=== PATIENT | male | born 2000 | race Caucasian/White ===

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

== ENCOUNTER 2023-05-17 20:46 | Emergency (ER) | payer OTHER, SELFPAY ==
[2023-05-17 20:47] VITALS: BP 155/93; PULSE 112; RESP 16; TEMP 36.1; O2SAT 99; BMI 31.2
--- NOTE | 2023-05-17 20:49 | EKG12_ITS ---
Test Reason : CP/PALPITATIONS Blood Pressure : / mmHG Vent. Rate : 098 BPM Atrial Rate : 098 BPM P-R Int : 172 ms QRS Dur : 080 ms QT Int : 334 ms P-R-T Axes : 034 039 005 degrees QTc Int : 426 ms Normal sinus rhythm Normal ECG Confirmed by Jay Hampton ([id number]), market editor MARTIN JEFFREY ([id number]) on 05/18/2023 10:05:50 AM Referred By: CORNELIUS Confirmed By:Jay Hampton
--- NOTE | 2023-05-17 21:10 | RAD_ITS ---
INDICATION: chest pain EXAMINATION/TECHNIQUE: X-RAY - XR Chest 1 View COMPARISON: None. FINDINGS: LINES/DEVICES: None. LUNGS: No consolidation, edema or effusion. No pneumothorax. MEDIASTINUM AND CARDIOVASCULAR STRUCTURES: Cardiac silhouette not enlarged. Central airways and mediastinal contour are unremarkable. BONES AND SOFT TISSUES: Unremarkable. RAD/Chest 1 View (Portable) IMPRESSION: No radiographic evidence of acute cardiopulmonary disease. Electronically Signed: Gurwinder Henao MD at 21:52 EDT ,
--- NOTE | 2023-05-17 22:29 | EX.ED.DYSGE1 ---
HPI History of Present Illness Chief Complaint: Chest Other Informant: patient Narrative Narrative: Patient states last night around 24 hours or so ago, he drank a preworkout before going to the gym with his friend, however he drank his friends drink on accident thinking it was his. His friend had some type of prescription steroid or something like that added to the preworkout which also has a larger amount of caffeine than this patient is used to, he estimates around 600 mg of caffeine in addition to other supplements such as amino acids, etc. He states he went to his workout and was fine but toward the end of it he started feeling tired and then ever since then or little after he has been feeling shaky, having intermittent palpitations, and tightness in the chest intermittently. No syncope or near syncope. He takes Adderall. He is concerned because his symptoms have persisted although they are not as severe as they were earlier in the day. He does not use any illicit drugs and does not suspect that there were any in this drink. [facility] Medical History Anxiety and depression Contact with and (suspected) exposure to other viral communicable diseases Home Medications meclizine 50 mg tablet (Antivert) 50 mg PO BID PRN dizziness #10 tabs 11/13/21 [Rx Last Taken Unknown] dextroamphetamine-amphetamine 5 mg tablet (Adderall) 5 mg PO DAILY 12/04/21 [History Last Taken Unknown] prednisone 20 mg tablet 20 mg PO BID #10 tabs 12/04/21 [Rx Last Taken Unknown] Allergy/AdvReac Type Severity Reaction Status Date / Time No Known Allergies Allergy Verified 05/17/23 20:47 Social History Smoking Status: Current every day smoker tobacco type: e-cigarettes ROS ROS ED Constitutional Constitutional ED: Reports other Details: Shaky ; Denies chills or fever(s) Eyes Eyes: Denies change in vision or diplopia ENT ENT ED: Denies rhinorrhea or sore throat Cardiovascular Cardiovascular: Reports chest pain and palpitations Respiratory/Chest Respiratory/Chest: Denies cough or dyspnea Gastrointestinal Gastrointestinal: Denies abdominal pain, diarrhea, nausea or vomiting Genitourinary Genitourinary ED: Denies dysuria or hematuria Musculoskeletal Musculoskeletal: Denies back pain or neck pain Integumentary Denies abscess or rash Neurologic Neurologic: Denies headache(s), paresthesias or weakness Psychiatric Psychiatric: Reports anxiety; Denies suicidal thoughts EXAM Physical Exam Const Vital Signs: 05/17/23 20:47 05/17/23 22:58 05/17/23 23:15 Temperature 96.9 F L Temperature Source Temporal Pulse Rate 112 H 82 Respiratory Rate 16 18 Blood Pressure 155/93 H 139/78 H Blood Pressure Mean 113 98 Pulse Ox 99 Oxygen Delivery Method Room Air Positive well nourished and well developed Constitutional Narrative: Well-appearing, no tachycardia at the time of exam General Appearance ED: well developed and NAD HEENT Reports moist mucous membranes normocephalic and atraumatic Eyes PERRL and EOMs intact bilaterally Eyes Narrative: 3 mm and responsive Neck full ROM and supple Resp normal respiratory effort and clear to auscultation bilaterally Cardio regular rate, regular rhythm and no murmurs GI non-tender and non-distended Auscultation: normoactive bowel sounds Palpation: soft Back/Spine no CVA tenderness General Back: other FROM Extremity normal to inspection General Extremety ED: Negative for edema, pulses abnormal or tenderness General Extremity: Negative for edema or pulses abnormal Neuro oriented x3, CN's II-XII intact bilaterally and no sensory deficits noted Sensorium / Orientation: awake and alert Motor Exam: strength 5/5 throughout Skin no rashes or lesions noted and no wounds MDM MDM MDM Narrative Medical decision making narrative: EKG, labs, two-view chest x-ray my interpretation normal, all unremarkable. Patient is doing well his rhythm is normal he had no dysrhythmias here and he is not tachycardic anymore. My suspicion is that this was all caffeine mixed with Adderall-related. There is no toxidrome right now. This includes anticholinergic. He states he was feeling a little confused earlier but he is not grossly confused, I think he just meant he was feeling a little disoriented. He does not have an anion gap metabolic acidosis and his vital signs are now normal, as he was a little hypertensive and tachycardic when he arrived. Stable for discharge home, I recommend avoiding any caffeine or other substances including preworkout supplementation until symptoms are completely resolved for at least 24 hours. I do think it is okay for him to continue taking his Adderall. He is comfortable with that plan. Lab Data Attestation: I reviewed the patient's lab results. Labs: Laboratory Results - last 24 hr 05/17/23 22:53 WBC 6.7 RBC 4.88 Hgb 14.2 Hct 40.1 MCV 82.2 MCH 29.1 MCHC 35.4 RDW Std Deviation 37.3 RDW Coeff of [place]ung 12.6 Plt Count 170 MPV 9.1 Immature Gran % (Auto) 0.500 Neut % (Auto) 58.2 Lymph % (Auto) 30.1 [place] % (Auto) 8.9 Eos % (Auto) 1.8 Baso % (Auto) 0.5 Absolute Neuts (auto) 3.9 Absolute Lymphs (auto) 2.00 Nucleated RBC % 0 Sodium 142 Potassium 3.5 Chloride 111 H Carbon Dioxide 24.0 Anion Gap 7 BUN 18 Creatinine 0.91 Estim Creat Clear Calc 165.10 Est GFR (MDRD) Af Amer 136 Est GFR (MDRD) Non-Af 112 BUN/Creatinine Ratio 19.9 Glucose 115 H Calcium 8.7 Troponin I High Sens 6 Radiography Diagnostic Testing: Clinical Impression(s) from Imaging Studies Chest X-Ray 05/17/23 21:10 IMPRESSION: No radiographic evidence of acute cardiopulmonary disease. Electronically Signed: Gurwinder Henao MD at 21:52 EDT Reading Location ID and State: [address] [place] [address] Tel , Service support , Rhythm Strip Rhythm Strip: Sinus Rhythm Rate: 98 Ectopy: None EKG Initial EKG: Attestation: I personally reviewed and interpreted this EKG as follows: Interpretation: Sinus Rhythm and No Acute Injury Pattern Comments: nml EKG Discharge Plan Triage Chief Complaint: Chest Other ED Provider: Riley Morris Dx/Rx/DC Orders Clinical Impression: Caffeine toxicity Instructions: ED Accidental Ingestion ... Prescriptions: No Action dextroamphetamine-amphetamine [Adderall] 5 mg tablet 5 mg PO DAILY prednisone 20 mg tablet 20 mg PO BID Qty: 10 0RF Antivert 50 mg tablet 50 mg PO BID PRN (Reason: dizziness) Qty: 10 0RF Primary Care Provider: EMILY KLINE Referrals: Rojelio Lang MD [Non-Staff] - As Needed Activity Restrictions/Additional Instructions: Avoid caffeine and other supplements until your symptoms have been resolved for at least 24 hours. You may continue taking your Adderall. Disposition Disposition: Home, Self Care
[2023-05-17 23:03] LABS: Absolute Neutrophil Count 3.9 X10^3/uL (2.0-7.7); Basophil# 0.03 X10^3/uL; Basophil% 0.5 % (0-1); Eosinophil# 0.12 X10^3/uL; Eosinophils% 1.8 % (0-5); Hematocrit 40.1 % (40-54); Hemoglobin 14.2 g/dL (13.0-16.5); Lymphocyte % 30.1 % (19-41); Mean Corp Hgb Conc 35.4 g/dL (32-36); Mean Corpuscular Hgb 29.1 pg (27.0-32.0); Mean Corpuscular Volume 82.2 fL (80-94); Mean Platelet Vol. 9.1 fl (6.2-12.0); Monocyte# 0.59 X10^3/uL; Monocyte% 8.9 % (0-10); NRBC Flagged by Analyzer 0 % (0-5); Neutrophil # 3.88 X10^3/uL (2.7-7.7); Neutrophil % 58.2 % (47-70); Platelet Count 170 K/mm3 (150-450); RBC Distribution Width CV 12.6 % (11.6-14.6); RBC Distribution Width SD 37.3 fl (35.1-43.9); Red Blood Count 4.88 M/mm3 (4.6-6.2); White Blood Count 6.7 K/mm3 (4.4-11.0)
[2023-05-17 23:15] VITALS: BP 139/78; PULSE 82; RESP 18
[2023-05-17 23:21] LABS: Anion Gap 7 (5-15); BUN 18 mg/dL (7-18); BUN/Creat Ratio 19.9 RATIO (10-20); Calcium,Total 8.7 mg/dL (8.5-10.1); Chloride 111 mmol/L (98-107); Creatinine, Serum 0.91 mg/dL (0.70-1.30); EST Glomerular Filtration Rate 112 mL/min (>60); Est Glom Filt Rate - Afr Amer 136 mL/min (>60); Glucose 115 mg/dL (74-106); Potassium 3.5 mmol/L (3.5-5.1); Sodium Level 142 mmol/L (136-145); Troponin-I HS (w/2H Reflex) 6 pg/mL (3.0-78.0)
[2023-05-17 23:46] VITALS: BP 120/89; PULSE 72; RESP 20; TEMP 36.1; O2SAT 99
[2023-05-18 00:59] LABS: Reflex Troponin-HS? (from REC) Y
== END 2023-05-17 23:50 | disposition home or self-care (01) ==
PROVIDERS: Emergency Provider Emergency Medicine; Visit Provider Emergency Medicine
DX: R00.2 Palpitations (principal); F17.290 Nicotine dependence, other tobacco product, uncomplicated; F41.9 Anxiety disorder, unspecified; R07.89 Other chest pain; T43.615A Adverse effect of caffeine, initial encounter
CPT/HCPCS: 71045; 80048; 84484; 85025; 93005; 99283

== ENCOUNTER 2023-10-30 21:34 | Emergency (ER) | payer OTHER, SELFPAY ==
[2023-10-30 21:35] VITALS: BP 141/79; PULSE 97; RESP 18; TEMP 36.2; O2SAT 100
[2023-10-30 22:39] LABS: Absolute Lymphocyte Count 2.56 X10^3/uL (0.83-4.51); Absolute Neutrophil Count 3.8 X10^3/uL (2.0-7.7); Basophil# 0.03 X10^3/uL; Basophil% 0.4 % (0-1); Eosinophils% 1.4 % (0-5); Hematocrit 42.3 % (40-54); Hemoglobin 15.1 g/dL (13.0-16.5); Lymphocyte # 2.56 X10^3/ul (0.83-4.51); Lymphocyte % 35.6 % (19-41); Mean Corp Hgb Conc 35.7 g/dL (32-36); Mean Corpuscular Hgb 29.3 pg (27.0-32.0); Mean Corpuscular Volume 82.1 fL (80-94); Mean Platelet Vol. 9.1 fl (6.2-12.0); Monocyte# 0.71 X10^3/uL; Monocyte% 9.9 % (0-10); NRBC Flagged by Analyzer 0 % (0-5); Neutrophil # 3.76 X10^3/uL (2.7-7.7); Neutrophil % 52.3 % (47-70); Platelet Count 195 K/mm3 (150-450); RBC Distribution Width CV 12.2 % (11.6-14.6); RBC Distribution Width SD 35.9 fl (35.1-43.9); Red Blood Count 5.15 M/mm3 (4.6-6.2); White Blood Count 7.2 K/mm3 (4.4-11.0)
[2023-10-30] MEDS: Dicyclomine 20 MG/2 ML Vial IM (22:39)
[2023-10-30] MEDS: 0.9% Normal Saline (1000mL) 1,000 ML 999 ML IV (22:39)
--- NOTE | 2023-10-30 22:40 | RAD_ITS ---
EXAM: XR ABDOMEN, 2 VIEWS AND XR CHEST, 1 VIEW CLINICAL INDICATION: abd pain TECHNIQUE: Frontal view of the chest, frontal view of the abdomen/pelvis and upright or decubitus view of the abdomen. COMPARISON: No relevant prior studies available. FINDINGS: CHEST: LUNGS AND PLEURAL SPACES: Unremarkable. No consolidation or edema. No pneumothorax. No effusion. HEART: Unremarkable. Cardiac silhouette not enlarged. MEDIASTINUM: Central airways and mediastinal contour are unremarkable. ABDOMEN: INTRAPERITONEAL SPACE: No free air. GASTROINTESTINAL TRACT: Unremarkable. Non-obstructive. No bowel or stomach distention. ORGANS: Unremarkable as visualized. No organomegaly. No abnormal calcifications. TUBES, LINES AND DEVICES: None. BONES/JOINTS: No acute findings. SOFT TISSUES: No acute findings. RAD/Acute Abdomen Inc Chest IMPRESSION: Negative chest and abdominal series. Electronically Signed: Herman Sherman MD at 23:11 EDT ,
[2023-10-30 22:47] LABS: Erythrocyte Sedimentation Rate < 1 mm/hr (0-20)
[2023-10-30 22:58] LABS: AST(SGOT) 17 U/L (15-37); Alanine Aminotransfer ALT/SGPT 41 U/L (16-61); Albumin, Serum 3.8 g/dL (3.2-5.0); Alkaline Phosphatase 72 U/L (45-117); Anion Gap 5 (5-15); BUN 14 mg/dL (7-18); BUN/Creat Ratio 16.1 RATIO (10-20); Bilirubin, Direct 0.12 mg/dL (0.00-0.30); CRP < 2.90 mg/L (0.0-3.0); Calcium,Total 9.1 mg/dL (8.5-10.1); Chloride 109 mmol/L (98-107); Creatinine, Serum 0.87 mg/dL (0.70-1.30); EST Glomerular Filtration Rate 117 mL/min (>60); Est Glom Filt Rate - Afr Amer 141 mL/min (>60); Estimated Creatinine Clearance 169.66 ml/min; Glucose 119 mg/dL (74-106); Lipase 22 U/L (13-75); Magnesium 1.9 mg/dL (1.6-2.6); Potassium 3.5 mmol/L (3.5-5.1); Protein, Total 6.8 g/dL (6.4-8.2); Sodium Level 139 mmol/L (136-145)
[2023-10-30 23:11] LABS: Bacteria 0 SEEN /hpf (None Seen); Mucous, Urine 0 SEEN /hpf (<or=2+); Red Blood Cells-Urine 0 SEEN /hpf (0-5); White Blood Cells 0 SEEN /hpf (0-5)
[2023-10-30 23:12] LABS: Color, Urine Yellow (Yellow); Glucose, Dipstick Normal (Normal); Ketone-Dipstick Negative (Negative); Leukocyte Esterase-Dipstick Negative /ul (Negative); Nitrite-Dipstick Negative (Negative); Occult Blood-Urine Negative /ul (Negative); Protein-Dipstick 15 mg/dl (Negative); Urine Bilirubin Dipstick Negative (Negative); Urine Clarity Sl. Cloudy (Clear); Urine Urobilinogen Normal (Normal)
[2023-10-30 23:21] LABS: Amorphous Sediment 1+ URATE; Squamous Epithelial Cells - UA 0-5 SEEN /hpf (0-5)
[2023-10-30 23:35] VITALS: PULSE 57; RESP 18; TEMP 37.2; O2SAT 98
--- NOTE | 2023-10-30 23:48 | EX.ED.DYSGE1 ---
HPI History of Present Illness Chief Complaint: Abd Pain Informant: patient Narrative Narrative: Patient is a 23-year-old male with past medical history of ADHD and as well as anxiety and depression. He states for the last 2 to 3 days he has been having intermittent left-sided abdominal pain and has been gassy. He states that he is fluctuating between constipation and loose stool. He denies any family history of intestinal disorders such as IBS ulcerative colitis or Crohn's disease. However with his persistent abdominal pain he is concern for potential infection and therefore comes in for evaluation [facility] Medical History (Updated 10/30/23 @ 23:[address] Bayron Schwab, DO) ADHD Contact with and (suspected) exposure to other viral communicable diseases Anxiety and depression Home Medications ?Medication ?Instructions ?Recorded ?Last Taken ?Type dextroamphetamine-amphetamine 20 1 tab PO DAILY 10/30/23 Unknown History mg tablet polyethylene glycol 3350 17 17 g PO DAILY #510 grams 10/30/23 Unknown Rx gram/dose oral powder (Miralax) Allergy/AdvReac Type Severity Reaction Status Date / Time No Known Allergies Allergy Verified 10/30/23 21:35 Social History Smoking Status: Current some day smoker tobacco type: cigarettes and e-cigarettes ROS ROS ED Constitutional Constitutional ED: Denies chills or fever(s) ENT ENT ED: Denies sore throat Cardiovascular Cardiovascular: Denies chest pain Respiratory/Chest Respiratory/Chest: Denies cough or dyspnea Gastrointestinal Gastrointestinal: Reports abdominal pain, constipation and diarrhea; Denies nausea or vomiting Genitourinary Genitourinary ED: Denies dysuria Musculoskeletal Musculoskeletal: Denies myalgias Integumentary Denies rash Neurologic Neurologic: Denies headache(s) Hematologic/Lymphatic Hematologic/Lymphatic: Denies easy bleeding or easy bruising EXAM Physical Exam Const Vital Signs: 10/30/23 21:35 10/30/23 23:35 Temperature 97.2 F L 99 F Temperature Source Temporal Oral Pulse Rate 97 57 L Respiratory Rate 18 18 Blood Pressure 141/79 H Blood Pressure Mean 99 Pulse Ox 100 98 Oxygen Delivery Method Room Air Room Air Positive well nourished and well developed General Appearance ED: well developed; Negative for pallor HEENT Reports moist mucous membranes Eyes PERRL and EOMs intact bilaterally General Eye ED: Negative for scleral icterus Neck supple Resp normal respiratory effort and clear to auscultation bilaterally Cardio regular rate and regular rhythm GI non-distended and no masses GI Narrative: Abdomen is soft and nondistended with hypoactive bowel sounds. There is mild pain with palpation in the left lower quadrant without voluntary guarding or rigidity. No pulsatile mass or fluid wave. No increased tympany noted Auscultation: hypoactive bowel sounds Palpation: soft Back/Spine no CVA tenderness Extremity normal to inspection Neuro oriented x3, CN's II-XII intact bilaterally and no sensory deficits noted Sensorium / Orientation: alert Motor Exam: strength 5/5 throughout Psych mental status grossly normal Skin no rashes or lesions noted, no wounds and skin turgor normal General Skin Exam: Negative for jaundice or pallor MDM MDM MDM Narrative Medical decision making narrative: Patient arrived to the ER mildly hypertensive but otherwise with stable vitals. He had a soft nonsurgical abdomen and based on his age with pain in left lower quadrant differential diagnosis is for diverticulitis versus colitis versus constipation. Patient could also be atypical presentation for kidney stone or pyelonephritis and as he endorses belly pain there is always concern for biliary colic versus pancreatitis. Patient could also be developing autoimmune intestinal disorders such as ulcer colitis or Crohn's disease. Basic labs and a x-ray were obtained. Labs revealed no clinically significant findings and without elevation to his ESR or CRP concern for autoimmune disease is low. Urine showed no sign of infection going against UTI/pyelonephritis and no blood going against kidney stone. X-ray component revealed no signs of obstruction perforation or ileus but did show changes consistent with constipation which would correlate with the patient's symptoms and exam. At this time as he does not have signs of systemic infection or obstruction there is no need for further workup and he can be given magnesium citrate to help stimulate bowel movements and is otherwise safe for discharge History & Record Review Discussion w/independent historian: Patient Lab Data Attestation: I reviewed the patient's lab results. Labs: Laboratory Results - last 24 hr 10/30/23 10/30/23 21:52 23:05 WBC 7.2 RBC 5.15 Hgb 15.1 Hct 42.3 MCV 82.1 MCH 29.3 MCHC 35.7 RDW Std Deviation 35.9 RDW Coeff of Chung 12.2 Plt Count 195 MPV 9.1 Immature Gran % (Auto) 0.400 Neut % (Auto) 52.3 Lymph % (Auto) 35.6 [place] % (Auto) 9.9 Eos % (Auto) 1.4 Baso % (Auto) 0.4 Absolute Neuts (auto) 3.8 Absolute Lymphs (auto) 2.56 Nucleated RBC % 0 ESR < 1 Sodium 139 Potassium 3.5 Chloride 109 H Carbon Dioxide 25.0 Anion Gap 5 BUN 14 Creatinine 0.87 Estim Creat Clear Calc 169.66 Est GFR (MDRD) Af Amer 141 Est GFR (MDRD) Non-Af 117 BUN/Creatinine Ratio 16.1 Glucose 119 H Calcium 9.1 Magnesium 1.9 Total Bilirubin 0.30 Direct Bilirubin 0.12 AST 17 ALT 41 Alkaline Phosphatase 72 C-React Prot Ext Range < 2.90 Total Protein 6.8 Albumin 3.8 Globulin 3.0 Lipase 22 Urine Color Yellow Urine Clarity Sl. Cloudy Urine pH 6.0 Ur Specific [place] 1.020 Urine Protein 15 H Urine Glucose (UA) Normal Urine Ketones Negative Urine Occult Blood Negative Urine Nitrite Negative Urine Bilirubin Negative Urine Urobilinogen Normal Ur Leukocyte Esterase Negative Urine RBC 0 SEEN Urine WBC 0 SEEN Ur Squamous Epith Cells 0-5 SEEN Amorphous Sediment 1+ URATE Urine Bacteria 0 SEEN Urine Mucus 0 SEEN Radiography Diagnostic Testing: Acute abdominal series with 1 view chest as interpreted by the emergency medicine physician reveals a nonobstructive nonspecific bowel gas pattern with constipation change. Chest x-ray component reveals no acute infiltrate pneumothorax or pleural effusion. Discharge Plan Triage Chief Complaint: Abd Pain ED Provider: Bayron Schwab Dx/Rx/DC Orders Clinical Impression: Acute constipation, ADHD, Anxiety and depression Instructions: IBS Irritable Bowel Syndrome, ED Constipation (Adult) Prescriptions: New polyethylene glycol 3350 [Miralax] 17 gram/dose powder 17 g PO DAILY Qty: 510 2RF No Action dextroamphetamine-amphetamine 20 mg tablet 1 tab PO DAILY Primary Care Provider: Ursula Peck Referrals: Ursula Peck, IT APPLICATION SUPPORT ANALYST-C [Primary Care Provider] - Activity Restrictions/Additional Instructions: On Wednesday morning drink half the bottle of magnesium citrate and if this does not stimulate a bowel movement within 4 hours then you may finish the bottle. As long as you have bowel movements on Wednesday beginning Wednesday take the MiraLAX daily as directed to help prevent any reoccurrence of constipation. If symptoms persist you may need to follow-up with your family doctor to discuss a GI referral for further testing and treatment options and return to the ER should you have any further concerns Print Language: [place] Disposition Disposition: Home, Self Care
[2023-10-30 23:51] VITALS: BP 150/68; PULSE 71; RESP 16; TEMP 37.2; O2SAT 96
[2023-10-30] MEDS: Magnesium Citrate 300 ML PO (23:54)
== END 2023-10-30 23:59 | disposition home or self-care (01) ==
PROVIDERS: Emergency Provider Emergency Medicine; PCP Nurse Practitioner Family; Visit Provider Emergency Medicine
DX: K59.00 Constipation, unspecified (principal); F41.9 Anxiety disorder, unspecified; F90.9 Attention-deficit hyperactivity disorder, unspecified type; F32.A Depression, unspecified; F17.210 Nicotine dependence, cigarettes, uncomplicated; F17.290 Nicotine dependence, other tobacco product, uncomplicated
CPT/HCPCS: 74022; 80048; 80076; 81001; 83690; 83735; 85025; 85652; 86140; 96360; 96372; 99283; J7030; A4216